=== PATIENT | male | born 1945 | race Caucasian/White ===

== ENCOUNTER 2020-09-21 14:55 | Inpatient (IN) | payer MEDICARE, OTHER ==
[2020-09-21] MEDS ORDERED: methylPREDNISolone Sod Succ/PF 125 MG/2 ML VIAL ONE (15:31)
[2020-09-21 15:46] LABS: #Eosinphils 0.2 10x3/uL (0.0-0.5); #Monocytes 0.8 10x3/uL (0.0-1.1); #Neutrophils 5.3 10x3/uL (1.5-8.4); %Basophils 0.4 % (0.0-2.0); %Eosinophils 2.6 % (0.0-6.0); %Lymphocytes 9.8 % (18.0-47.0); %Monocytes 11.7 % (0.0-10.0); %Neutrophils 75.2 % (40.0-75.0); Hemoglobin 15.1 g/dL (13.5-17.5); Mean Corpuscular HGB CONC 31.7 g/dL (32.0-36.0); Mean Corpuscular Hemoglobin 32.2 pg (27.0-33.0); Mean Corpuscular Volume 101.5 fl (81.2-95.1); Mean Platelet Volume 10.5 fl (7.4-10.4); Platelet Count 247 10x3/uL (150-450); RBC Distribution Width 11.6 % (11.5-14.5); Red Blood Cell (RBC) Count 4.69 10x6/uL (4.32-5.72)
[2020-09-21 15:59] LABS: ALT (SGPT) 18 U/L (8-55); AST (SGOT) 18 U/L (5-34); Albumin 3.8 g/dL (3.4-4.8); Alkaline Phosphatase 84 U/L (40-110); Anion Gap 15 mmol/L (10-20); BUN (Urea Nitrogen) 12 mg/dL (8.4-25.7); Bilirubin, Total 0.6 mg/dL (0.2-1.2); Calc. Creatinine Clearance 0 mL/min (70-130); Calcium 9.3 mg/dL (7.8-10.44); Carbon Dioxide 36 mmol/L (23-31); Chloride 91 mmol/L (98-107); Globulin 2.7 g/dL (2.4-3.5); Glucose 102 mg/dL (83-110); Potassium 5.1 mmol/L (3.5-5.1); Protein, Total 6.5 g/dL (5.8-8.1); Sodium 137 mmol/L (136-145)
[2020-09-21 16:38] LABS: SARS-CoV-2 NAA Rapid Test Not Detected (NotDetected)
[2020-09-21] MEDS ORDERED: Magnesium 2 GM/50 ML BAG (IN WATER) ONE (17:44)
[2020-09-21] MEDS ORDERED: Acetaminophen 325 MG TAB PO PRN (19:56)
[2020-09-21] MEDS ORDERED: HYDROcodone/Acetaminophen 5/325 mg Tablet PO PRN (19:56)
[2020-09-21] MEDS ORDERED: Ondansetron PF 4 MG/2 ML Vial IVP PRN (19:56)
[2020-09-21] MEDS ORDERED: Ondansetron ODT 4 MG TAB PO PRN (19:56)
[2020-09-22 02:03] LABS: Actual Bicarbonate (HCO3a) 39.8 mEq/L (22-28); Base Excess (BEa) 9.4 mEq/L (-2.0 to +3.0); Calcium, Ionized (arterial) 1.16 mmol/L (1.12-1.30); Carboxyhemoglobin (COHb) 1.7 gm% (0.0-3.0); Hemoglobin (Hb) 15.7 g/dL (14.0-18.0); O2 Tension (PaO2), arterial 57.4 mmHg (> 70.0); Potassium - ABG Lab 4.5 mmol/L (3.70-5.30); Puncture Site RRA
[2020-09-22 05:22] LABS: #Monocytes 0.1 10x3/uL (0.0-1.1); #Neutrophils 3.9 10x3/uL (1.5-8.4); %Lymphocytes 5.6 % (18.0-47.0); %Monocytes 3.2 % (0.0-10.0); Hemoglobin 14.4 g/dL (13.5-17.5); Mean Corpuscular HGB CONC 32.5 g/dL (32.0-36.0); Mean Corpuscular Hemoglobin 32.1 pg (27.0-33.0); Mean Corpuscular Volume 98.9 fl (81.2-95.1); Platelet Count 220 10x3/uL (150-450); RBC Distribution Width 11.4 % (11.5-14.5); Red Blood Cell (RBC) Count 4.48 10x6/uL (4.32-5.72); White Blood Cell (WBC) Count 4.3 10x3/uL (3.5-10.5)
[2020-09-22 05:32] LABS: ALT (SGPT) 16 U/L (8-55); AST (SGOT) 15 U/L (5-34); Albumin 3.5 g/dL (3.4-4.8); Alkaline Phosphatase 73 U/L (40-110); BUN (Urea Nitrogen) 17 mg/dL (8.4-25.7); Bilirubin, Total 0.5 mg/dL (0.2-1.2); Calc. Creatinine Clearance 0 mL/min (70-130); Calcium 9.6 mg/dL (7.8-10.44); Globulin 2.8 g/dL (2.4-3.5); Glucose 176 mg/dL (83-110); Magnesium 2.4 mg/dL (1.6-2.6); Protein, Total 6.3 g/dL (5.8-8.1)
[2020-09-22 05:40] LABS: Anion Gap 15 mmol/L (10-20); Carbon Dioxide 34 mmol/L (23-31); Chloride 92 mmol/L (98-107); Potassium 5.1 mmol/L (3.5-5.1); Sodium 136 mmol/L (136-145)
[2020-09-22 06:04] LABS: Actual Bicarbonate (HCO3a) 39.4 mEq/L (22-28); Base Excess (BEa) 9.5 mEq/L (-2.0 to +3.0); CO2 Tension 78.6 mmHg (35.0-45.0); Carboxyhemoglobin (COHb) 1.3 gm% (0.0-3.0); Hemoglobin (Hb) 15.6 g/dL (14.0-18.0); O2 Tension (PaO2), arterial 78.4 mmHg (> 70.0); Potassium - ABG Lab 4.8 mmol/L (3.70-5.30); Puncture Site RRA; pH, Arterial 7.32 (7.35-7.45)
[2020-09-22] MEDS ORDERED: methylPREDNISolone Sod Succ/PF 125 MG/2 ML VIAL ONE (06:57)
[2020-09-22] MEDS: methylPREDNISolone Sod Succ 40 MG VIAL IVP SCH ×3 (07:06→19:56)
[2020-09-22] MEDS ORDERED: Enoxaparin Sodium 40 MG/0.4 ML SYRINGE ONE (09:09)
[2020-09-22] MEDS: Enoxaparin Sodium 40 MG/0.4 ML SYRINGE SC SCH (09:12)
[2020-09-22 11:35] LABS: Hemoglobin A1c 6.2 % (4.0-6.0)
[2020-09-22] MEDS ORDERED: methylPREDNISolone Sod Succ 40 MG VIAL ONE ×2 (12:21→19:53)
[2020-09-22] MEDS: Mometasone/Formoterol 200/5 60 PUFF INH SCH (19:30)
[2020-09-22] MEDS ORDERED: Mometasone/Formoterol 200/5 60 PUFF INH ONE (19:37)
[2020-09-23 05:14] LABS: #Monocytes 0.5 10x3/uL (0.0-1.1); #Neutrophils 13.5 10x3/uL (1.5-8.4); %Basophils 0.1 % (0.0-2.0); %Lymphocytes 1.8 % (18.0-47.0); %Monocytes 3.3 % (0.0-10.0); %Neutrophils 93.7 % (40.0-75.0); Hemoglobin 13.9 g/dL (13.5-17.5); Mean Corpuscular HGB CONC 32.8 g/dL (32.0-36.0); Mean Corpuscular Volume 97.5 fl (81.2-95.1); Mean Platelet Volume 10.4 fl (7.4-10.4); Platelet Count 246 10x3/uL (150-450); RBC Distribution Width 11.8 % (11.5-14.5); Red Blood Cell (RBC) Count 4.35 10x6/uL (4.32-5.72); White Blood Cell (WBC) Count 14.4 10x3/uL (3.5-10.5)
[2020-09-23] MEDS ORDERED: Enoxaparin Sodium 40 MG/0.4 ML SYRINGE ONE (08:53)
[2020-09-23] MEDS ORDERED: methylPREDNISolone Sod Succ 40 MG VIAL ONE ×2 (08:54→12:52)
[2020-09-23] MEDS: methylPREDNISolone Sod Succ 40 MG VIAL IVP SCH ×5 (09:15→23:35)
[2020-09-23] MEDS: Enoxaparin Sodium 40 MG/0.4 ML SYRINGE SC SCH (09:15)
[2020-09-23] MEDS: Pantoprazole 40 MG VIAL IVP SCH (09:16)
[2020-09-23] MEDS: Mometasone/Formoterol 200/5 60 PUFF INH SCH ×2 (11:30→19:42)
[2020-09-23 11:39] LABS: Hemoglobin A1c 6.2 % (4.0-6.0)
[2020-09-23 14:12] VITALS: BMI 23.2
[2020-09-24] MEDS: methylPREDNISolone Sod Succ 40 MG VIAL IVP SCH ×2 (05:38→13:42)
[2020-09-24] MEDS: Mometasone/Formoterol 200/5 60 PUFF INH SCH (07:50)
[2020-09-24] MEDS: Enoxaparin Sodium 40 MG/0.4 ML SYRINGE SC SCH ×2 (10:25→11:01)
[2020-09-24] MEDS: Pantoprazole 40 MG VIAL IVP SCH (10:26)
[2020-09-24 12:02] VITALS: BP 124/61; TEMP 98.4
== END 2020-09-24 16:16 | disposition home or self-care (01) | DRG 189 ==
LOC: CSHERS 14:55 → CSHERHOLD 20:41 → CSHTELE 09-23 13:53
PROVIDERS: ADMIT Emergency Medicine; ATTEND Internal Medicine
PROC: 5A09457 Assistance with Respiratory Ventilation, 24-96 Consecutive Hours, Continuous Positive Airway Pressure (ICD-10-PCS; principal; 2020-09-21)
DX: J96.02 Acute respiratory failure with hypercapnia (principal); G93.41 Metabolic encephalopathy; J44.1 Chronic obstructive pulmonary disease with (acute) exacerbation; J90 Pleural effusion, not elsewhere classified; J96.01 Acute respiratory failure with hypoxia; I10 Essential (primary) hypertension; Z79.52 Long term (current) use of systemic steroids; Z79.899 Other long term (current) drug therapy; Z20.822 Contact with and (suspected) exposure to COVID-19
CPT/HCPCS: 36415; 36600; 71045; 80053; 82805; 83036; 83735; 83880; 84484; 85025; 93005; 94640; 94660; 94664; 94760; 96365; 96375; C9113; J1650; J1956; J2920; J2930; J3475; J7620; U0002

== ENCOUNTER 2024-12-10 23:54 | Inpatient (IN) | payer MEDICARE, OTHER ==
[2024-12-11 01:59] LABS: #Basophils 0.03 10x3/uL (0.0-0.2); #Eosinophils 0.25 10x3/uL (0.0-0.5); #Monocytes 0.89 10x3/uL (0.0-1.1); #Neutrophils 9.02 10x3/uL (1.5-8.4); %Basophils 0.3 % (0.0-2.0); %Eosinophils 2.3 % (0.0-6.0); %Lymphocytes 4.7 % (18.0-47.0); %Monocytes 8.3 % (0.0-10.0); %Neutrophils 84.1 % (40.0-75.0); Hematocrit 38.9 % (38.8-50.0); Hemoglobin 11.8 g/dL (13.5-17.5); Mean Corpuscular Hemoglobin 31.8 pg (27.0-33.0); Mean Corpuscular Volume 104.9 fL (81.2-95.1); Platelet Count 171 10x3/uL (150-450); Red Blood Cell (RBC) Count 3.71 10x6/uL (4.32-5.72); White Blood Cell (WBC) Count 10.72 10x3/uL (3.5-10.5)
[2024-12-11 02:21] LABS: ALT (SGPT) 20 U/L (Less than 45); AST (SGOT) 22 U/L (11-34); Albumin 3.1 g/dL (3.1-4.5); Alkaline Phosphatase 76 U/L (40-110); BUN (Urea Nitrogen) 12 mg/dL (8.4-25.7); Bilirubin, Total 0.4 mg/dL (0.3-1.2); Calc. Creatinine Clearance 0 mL/min (70-130); Calcium 9.0 mg/dL (7.8-10.44); Globulin 2.8 g/dL (2.4-3.5); Glucose 114 mg/dL (83-110)
[2024-12-11 02:28] LABS: Anion Gap 13 mmol/L (10-20); Carbon Dioxide 41 mmol/L (23-31); Chloride 92 mmol/L (98-107); Potassium 4.5 mmol/L (3.5-5.1); Sodium 141 mmol/L (136-145)
[2024-12-11 02:29] LABS: Actual Bicarbonate (HCO3v) 47.6 mEq/L (22-28); Analyzer IN Cardio CS ER; Base Excess 16.4 mEq/L (-2 - +2); Calcium, Ionized (venous) 1.13 mmol/L (1.16-1.32); Chloride (VBG) 92 mmol/L (98-106); Hematocrit-VBG 39 % (42.0-52.0); Hemoglobin (Hb) 13.3 g/dL (12.6-17.4); Potassium (VBG) 4.36 mmol/L (3.70-5.30); Puncture Site Other Site; RapidComm Collect By Lab; Sodium 140 mmol/L (133-146)
[2024-12-11] MEDS ORDERED: Ondansetron PF 4 MG/2 ML Vial IVP PRN (04:02)
[2024-12-11] MEDS ORDERED: Dextrose 50% Abboject 50 ML SYRINGE SLOW IVP PRN (04:02)
[2024-12-11] MEDS ORDERED: Glucagon 1 MG/ML KIT IM PRN (04:02)
[2024-12-11 04:13] LABS: Glucose, Urine (Dipstick) Normal (Negative); Leukocyte Negative (Negative); Protein, Urine (Dipstick) 30 mg/dl (Neg-Trace); Specific Gravity, Urine 1.015 (1.005-1.030)
[2024-12-11 04:18] LABS: Bacteria/HPF 1+ HPF (None Seen); CAUTI Indications for Culture Pelvic or flank pain
[2024-12-11 04:23] LABS: WBC/HPF 0-3 HPF (0-3)
[2024-12-11 04:24] LABS: Urine Culture Reflex No No
[2024-12-11 04:38] LABS: Actual Bicarbonate (HCO3v) 47.3 mEq/L (22-28); Analyzer IN Cardio CS ER; Base Excess 17.4 mEq/L (-2 - +2); Calcium, Ionized (venous) 1.11 mmol/L (1.16-1.32); Chloride (VBG) 92 mmol/L (98-106); Hematocrit-VBG 38 % (42.0-52.0); Hemoglobin (Hb) 12.8 g/dL (12.6-17.4); Potassium (VBG) 4.28 mmol/L (3.70-5.30); Puncture Site Other Site; RapidComm Collect By Lab; Sodium 140 mmol/L (133-146)
[2024-12-11] MEDS: Mometasone 200 MCG/Formoterol 5 MCG 60 PUFF INHALER INH SCH (08:45)
[2024-12-11] MEDS ORDERED: dilTIAZem 25 MG/5 ML VIAL SLOW IVP SCH (09:00)
[2024-12-11 09:39] VITALS: BMI 18.8
[2024-12-11] MEDS: Enoxaparin 40 MG (0.4 mL) SYRINGE SC SCH (10:59)
[2024-12-11] MEDS: Pantoprazole 40 MG VIAL IVP SCH (10:59)
[2024-12-11] MEDS ORDERED: ALPRAZolam 0.25 MG TAB PO PRN (11:51)
[2024-12-11] MEDS ORDERED: Mometasone 200 MCG/Formoterol 5 MCG 60 PUFF INHALER INH SCH (18:30)
[2024-12-11] MEDS: Mupirocin 1 GM TUBE NASAL DECOLOIZATION TP SCH (20:18)
[2024-12-12 04:03] LABS: BUN (Urea Nitrogen) 18 mg/dL (8.4-25.7); Calc. Creatinine Clearance 85 mL/min (70-130); Calcium 9.6 mg/dL (7.8-10.44); Glucose 168 mg/dL (83-110); Magnesium 1.9 mg/dL (1.6-2.6)
[2024-12-12 04:10] LABS: Anion Gap 20 mmol/L (10-20); Carbon Dioxide 37 mmol/L (23-31); Chloride 92 mmol/L (98-107); Potassium 5.4 mmol/L (3.5-5.1); Sodium 144 mmol/L (136-145)
[2024-12-12 05:05] LABS: Actual Bicarbonate (HCO3v) 45.7 mEq/L (22-28); Analyzer IN Cardio CS ICU; Base Excess 16.0 mEq/L (-2 - +2); Calcium, Ionized (venous) 1.14 mmol/L (1.16-1.32); Chloride (VBG) 92 mmol/L (98-106); Hematocrit-VBG 36 % (42.0-52.0); Hemoglobin (Hb) 12.4 g/dL (12.6-17.4); Potassium (VBG) 5.24 mmol/L (3.70-5.30); Puncture Site Other Site; RapidComm Collect By LAB; Sodium 139 mmol/L (133-146)
[2024-12-12] MEDS: Cyanocobalamin (Vitamin B-12) 1,000 MCG TAB PO SCH (08:08)
[2024-12-12] MEDS ORDERED: Electrolyte Replacement Protocol 1 EACH FS SCH (08:15)
[2024-12-12] MEDS ORDERED: PHOS-NAK 1 PKT PACK PO PRN (08:30)
[2024-12-12] MEDS ORDERED: Potassium Chloride 20 MEQ in Premix 1 BAG IVPB PRN (08:30)
[2024-12-12 09:09] LABS: Potassium 4.5 mmol/L (3.5-5.1)
[2024-12-12 12:18] LABS: BUN (Urea Nitrogen) 21 mg/dL (8.4-25.7); Calc. Creatinine Clearance 81 mL/min (70-130); Calcium 9.3 mg/dL (7.8-10.44); Glucose 181 mg/dL (83-110)
[2024-12-12 12:30] LABS: Anion Gap 15 mmol/L (10-20); Carbon Dioxide 41 mmol/L (23-31); Chloride 91 mmol/L (98-107); Potassium 5.0 mmol/L (3.5-5.1); Sodium 142 mmol/L (136-145)
[2024-12-12] MEDS: Magnesium 2 GM/50 ML(in water) 2 GM in Premix 1 BAG IVPB PRN (13:26)
[2024-12-12 15:02] VITALS: BMI 18.8
[2024-12-13 03:51] LABS: Magnesium 2.3 mg/dL (1.6-2.6)
[2024-12-13 05:43] LABS: Actual Bicarbonate (HCO3v) 42.9 mEq/L (22-28); Analyzer IN Cardio CS ER; Base Excess 15.2 mEq/L (-2 - +2); Calcium, Ionized (venous) 1.08 mmol/L (1.16-1.32); Chloride (VBG) 92 mmol/L (98-106); Hematocrit-VBG 36 % (42.0-52.0); Hemoglobin (Hb) 12.3 g/dL (12.6-17.4); Potassium (VBG) 4.17 mmol/L (3.70-5.30); Puncture Site Other Site; RapidComm Collect By LAB.RB3; Sodium 136 mmol/L (133-146)
[2024-12-13] MEDS: FLU (Fluad Triv) 25-26 (65UP)PF 45 MCG/0.5 ML Syringe IM ONE (07:32)
[2024-12-13] MEDS: PNEUMOC 20-VAL CONJ-DIP CRM/PF 0.5 ML SYRINGE IM ONE (07:33)
[2024-12-14 06:34] LABS: Actual Bicarbonate (HCO3v) 46.1 mEq/L (22-28); Analyzer IN Cardio CS ICU; Base Excess 17.5 mEq/L (-2 - +2); Calcium, Ionized (venous) 1.13 mmol/L (1.16-1.32); Chloride (VBG) 94 mmol/L (98-106); Critical Notified By: Udy, RRT; Hematocrit-VBG 37 % (42.0-52.0); Hemoglobin (Hb) 12.5 g/dL (12.6-17.4); Potassium (VBG) 5.06 mmol/L (3.70-5.30); Puncture Site Other Site; RapidComm Collect By LAB.YY; Sodium 140 mmol/L (133-146)
[2024-12-14] MEDS: Pantoprazole 40 MG DR.TAB PO SCH (08:16)
[2024-12-14 09:10] VITALS: BP 156/86
[2024-12-14 13:31] VITALS: TEMP 97.2
== END 2024-12-14 13:33 | DRG 189 ==
LOC: CSHERS 23:54 → CSHICU 12-11 04:06
PROVIDERS: ADMIT Student in an Organized Health Care Education/Training Program; ATTEND Internal Medicine
PROC: 5A09457 Assistance with Respiratory Ventilation, 24-96 Consecutive Hours, Continuous Positive Airway Pressure (ICD-10-PCS; principal; 2024-12-11)
DX: J96.21 Acute and chronic respiratory failure with hypoxia (principal); G93.41 Metabolic encephalopathy; E43 Unspecified severe protein-calorie malnutrition; J44.1 Chronic obstructive pulmonary disease with (acute) exacerbation; E87.0 Hyperosmolality and hypernatremia; Z68.1 Body mass index [BMI] 19.9 or less, adult; J96.22 Acute and chronic respiratory failure with hypercapnia; Z79.899 Other long term (current) drug therapy; Z87.891 Personal history of nicotine dependence; D53.9 Nutritional anemia, unspecified; E87.5 Hyperkalemia; E83.42 Hypomagnesemia
CPT/HCPCS: 36415; 36416; 70450; 71045; 80048; 80053; 81001; 82805; 83735; 83880; 84100; 85025; 93005; 94640; 94660; 94664; 94760; 94762; 96374; 97139; J1650; J1815; J2470; J2919; J3475; J7042; J7626